=== PATIENT | female | born 1965 | race Hispanic/Latino ===

== ENCOUNTER 2022-01-07 08:00 | Inpatient (IN) | payer OTHER ==
[~2022-01-07 08:00] MED LIST: ISOVUE-370 76%-LOCM 1 ML ONE
[2022-01-07 08:14] LABS: #Basophils 0.1 thou/uL (0.0-0.2); #Eosinphils 0.1 thou/uL (0.0-0.7); #Lymphocytes 2.2 thou/uL (1.20-3.40); #Monocytes 0.5 thou/uL (0.11-0.59); #Neutrophils 2.9 thou/uL (1.40-6.50); %Basophils 1.5 % (0.0-1.0); %Eosinophils 1.6 % (0.0-10.0); %Lymphocytes 37.5 % (21.0-51.0); %Monocytes 8.5 % (0.0-10.0); %Neutrophils 50.8 % (42.0-75.0); Hemoglobin 11.1 g/dL (12.0-16.0); Mean Corpuscular HGB CONC 35.4 g/dL (32.0-36.0); Mean Corpuscular Hemoglobin 31.9 pg (27.0-31.0); Mean Corpuscular Volume 90.2 fL (78.0-98.0); Mean Platelet Volume 9.7 fL (7.4-10.4); Platelet Count 173 thou/uL (130-400); RBC Distribution Width 11.6 % (11.5-14.5); Red Blood Cell (RBC) Count 3.48 mill/uL (4.20-5.40); White Blood Cell (WBC) Count 5.8 thou/uL (4.8-10.8)
[2022-01-07 08:20] LABS: INR-International Normal Ratio 1.1; Prothrombin Time 14.7 sec (12.0-14.7)
[2022-01-07 08:21] LABS: PTT 30.1 sec (22.9-36.1)
[2022-01-07 08:28] LABS: ALT (SGPT) 11 U/L (8-55); AST (SGOT) 11 U/L (5-34); Alkaline Phosphatase 96 U/L (40-110); Anion Gap 14 mmol/L (10-20); BUN (Urea Nitrogen) 34 mg/dL (9.8-20.1); Bilirubin, Total 0.3 mg/dL (0.2-1.2); CK (CPK) 67 U/L (29-168); Calc. Creatinine Clearance 0 mL/min (70-130); Calcium 10.2 mg/dL (7.8-10.44); Carbon Dioxide 24 mmol/L (22-29); Chloride 101 mmol/L (98-107); Estimated GFR 35; Globulin 2.7 g/dL (2.4-3.5); Glucose 367 mg/dL (70-105); Potassium 4.5 mmol/L (3.5-5.1); Protein, Total 5.7 g/dL (6.0-8.3); Sodium 134 mmol/L (136-145)
[2022-01-07] MEDS ORDERED: Aspirin 300 MG Suppository ONE (08:46)
[2022-01-07 08:51] LABS: CKMB 1.7 ng/mL (0-6.6)
[2022-01-07 10:08] LABS: SARS-CoV-2 NAA Rapid Test Not Detected (NotDetected)
[2022-01-07] MEDS ORDERED: Morphine 2 MG/ML VIAL ONE ×2 (10:45→11:03)
[2022-01-07 11:18] LABS: Troponin I 0.038 ng/mL (< 0.028)
[2022-01-07] MEDS ORDERED: HumaLOG 300 UNITS/3 ML VIAL SC PRN (11:58)
[2022-01-07] MEDS ORDERED: Dextrose 5% in Water 1,000 ML IV PRN (11:58)
[2022-01-07] MEDS ORDERED: Dextrose 50% Abboject 50 ML SYRINGE SLOW IVP PRN (11:58)
[2022-01-07 12:30] LABS: Hemoglobin A1c 12.1 % (4.0-6.0)
[2022-01-07] MEDS ORDERED: Labetalol HCl 100 MG/20 ML VIAL ONE (13:04)
[2022-01-07] MEDS ORDERED: Furosemide 40 MG/4 ML VIAL SLOW IVP SCH (14:15)
[2022-01-07 15:06] LABS: Troponin I 0.032 ng/mL (< 0.028)
[2022-01-07] MEDS ORDERED: Ondansetron PF 4 MG/2 ML Vial IVP PRN (20:04)
[2022-01-07] MEDS: Atorvastatin Calcium 40 MG TAB PO SCH (21:07)
[2022-01-07] MEDS: Acetaminophen 650 MG Suppository PR PRN (21:33)
[2022-01-07] MEDS: HumaLOG 300 UNITS/3 ML VIAL SC PRN (21:49)
[2022-01-08 05:42] LABS: #Lymphocytes 2.1 thou/uL (1.20-3.40); #Monocytes 0.6 thou/uL (0.11-0.59); #Neutrophils 5.2 thou/uL (1.40-6.50); %Basophils 0.5 % (0.0-1.0); %Lymphocytes 26.1 % (21.0-51.0); %Monocytes 7.9 % (0.0-10.0); %Neutrophils 65.4 % (42.0-75.0); Hemoglobin 10.9 g/dL (12.0-16.0); Mean Corpuscular HGB CONC 33.1 g/dL (32.0-36.0); Mean Corpuscular Hemoglobin 29.6 pg (27.0-31.0); Mean Corpuscular Volume 89.5 fL (78.0-98.0); Mean Platelet Volume 9.9 fL (7.4-10.4); Platelet Count 180 thou/uL (130-400); RBC Distribution Width 11.8 % (11.5-14.5); Red Blood Cell (RBC) Count 3.69 mill/uL (4.20-5.40)
[2022-01-08 06:07] LABS: Anion Gap 14 mmol/L (10-20); BUN (Urea Nitrogen) 37 mg/dL (9.8-20.1); Calc. Creatinine Clearance 34 mL/min (70-130); Calcium 10.2 mg/dL (7.8-10.44); Carbon Dioxide 25 mmol/L (22-29); Cardiac Risk 2.1 (Less than 4.5); Chloride 103 mmol/L (98-107); Cholesterol 122 mg/dl (< 200 Desired); Estimated GFR 28; Glucose 279 mg/dL (70-105); HDL Cholesterol 58 mg/dL (>60 Neg Risk); LDL Cholesterol, Calculated 47 mg/dL; Potassium 4.5 mmol/L (3.5-5.1); Sodium 137 mmol/L (136-145); Triglycerides 83 mg/dL (Less than 150)
[2022-01-08] MEDS: Furosemide 40 MG/4 ML VIAL SLOW IVP SCH ×2 (06:11→15:12)
[2022-01-08] MEDS: HumaLOG 300 UNITS/3 ML VIAL SC PRN ×4 (06:11→22:12)
[2022-01-08] MEDS: Acetaminophen 650 MG Suppository PR PRN (08:38)
[2022-01-08] MEDS ORDERED: Aspirin 81 mg Enteric Coated Tablet PO SCH (09:00)
[2022-01-08] MEDS ORDERED: Enoxaparin Sodium 40 MG/0.4 ML SYRINGE SC SCH (09:00)
[2022-01-08] MEDS ORDERED: Lantus 1000 UNITS/10 ML VIAL SC SCH (09:00)
[2022-01-08] MEDS ORDERED: Metoprolol Tartrate 5 MG/5 ML VIAL IVP SCH (10:14)
[2022-01-08] MEDS ORDERED: Piperacillin/Tazobactam 3.375 GM in Sodium Chloride 0.9% 100 ML IVPB SCH ×2 (10:15→12:00)
[2022-01-08] MEDS: Metoprolol Tartrate 5 MG/5 ML VIAL IVP PRN (12:50)
[2022-01-08] MEDS: niCARdipine 25 MG in Sodium Chloride 0.9% 250 ML 250 ML IVPB SCH ×3 (13:32→22:50)
[2022-01-08 17:10] LABS: Bacteria/HPF 2+ HPF (None Seen); Bilirubin Negative (Negative); Blood, Urine 1+ (Negative); Clarity Clear (Clear); Glucose, Urine (Dipstick) 200 mg/dL (Negative); Ketone, Urine Trace mg/dL (Negative); Leukocyte 500 Leu/uL (Negative); Nitrite Negative (Negative); Protein, Urine (Dipstick) 300 mg/dL (Neg-Trace); RBC/HPF 0-3 HPF (0-3); Specific Gravity, Urine 1.022 (1.002-1.036); Squamous Epithelial 0-3 HPF (0-3); Urobilinogen Normal mg/dL (Less than 2); WBC/HPF Greater than 50 HPF (0-3); pH, Urine 6.5 (5.0-9.0)
[2022-01-08] MEDS: Albumin 25% 25 GM/100 ML BOT IVPB SCH (18:14)
[2022-01-08] MEDS: Atorvastatin Calcium 40 MG TAB PO SCH (20:35)
[2022-01-08] MEDS: Piperacillin/Tazobactam 3.375 GM in Sodium Chloride 0.9% 100 ML IVPB SCH (20:49)
[2022-01-09] MEDS: Albumin 25% 25 GM/100 ML BOT IVPB SCH ×3 (00:12→12:51)
[2022-01-09 04:00] LABS: #Lymphocytes 1.3 thou/uL (1.20-3.40); #Monocytes 0.9 thou/uL (0.11-0.59); #Neutrophils 7.9 thou/uL (1.40-6.50); %Basophils 0.2 % (0.0-1.0); %Eosinophils 0.1 % (0.0-10.0); %Lymphocytes 12.6 % (21.0-51.0); %Monocytes 9.1 % (0.0-10.0); %Neutrophils 77.9 % (42.0-75.0); Mean Corpuscular Hemoglobin 29.6 pg (27.0-31.0); Mean Corpuscular Volume 89.7 fL (78.0-98.0); Mean Platelet Volume 10.2 fL (7.4-10.4); Platelet Count 152 thou/uL (130-400); Red Blood Cell (RBC) Count 3.38 mill/uL (4.20-5.40); White Blood Cell (WBC) Count 10.2 thou/uL (4.8-10.8)
[2022-01-09 04:05] LABS: Anion Gap 19 mmol/L (10-20); BUN (Urea Nitrogen) 42 mg/dL (9.8-20.1); Calc. Creatinine Clearance 27 mL/min (70-130); Calcium 10.1 mg/dL (7.8-10.44); Carbon Dioxide 21 mmol/L (22-29); Chloride 104 mmol/L (98-107); Estimated GFR 23; Glucose 314 mg/dL (70-105); Potassium 3.7 mmol/L (3.5-5.1); Sodium 140 mmol/L (136-145)
[2022-01-09] MEDS: Piperacillin/Tazobactam 3.375 GM in Sodium Chloride 0.9% 100 ML IVPB SCH ×3 (04:37→21:27)
[2022-01-09] MEDS: HumaLOG 300 UNITS/3 ML VIAL SC PRN ×4 (04:37→23:08)
[2022-01-09] MEDS: Furosemide 40 MG/4 ML VIAL SLOW IVP SCH (05:41)
[2022-01-09] MEDS: Aspirin 300 MG Suppository PR SCH ×2 (07:21→08:34)
[2022-01-09] MEDS: Pantoprazole 40 MG VIAL IVP SCH (07:21)
[2022-01-09] MEDS ORDERED: Dextrose 5 %-0.45 % NaCl 1,000 ML IV SCH (08:45)
[2022-01-09] MEDS ORDERED: Enoxaparin Sodium 30 MG/0.3 ML SYRINGE SC SCH (09:00)
[2022-01-09] MEDS: NPH, Human Insulin Isophane 300 UNIT/3 ML VIAL SC SCH ×2 (11:34→21:28)
[2022-01-09] MEDS: Sodium Chloride 0.9% 1,000 ML IV SCH (11:34)
[2022-01-09] MEDS: Metoprolol Tartrate 5 MG/5 ML VIAL IVP PRN ×2 (13:55→20:42)
[2022-01-09] MEDS: Atorvastatin Calcium 40 MG TAB PO SCH (21:27)
[2022-01-09] MEDS: hydrALAZINE 20 MG/ML VIAL SLOW IVP PRN (23:23)
[2022-01-10] MEDS: Sodium Chloride 0.9% 1,000 ML IV SCH ×2 (01:40→18:03)
[2022-01-10] MEDS: Metoprolol Tartrate 5 MG/5 ML VIAL IVP PRN ×2 (02:17→10:25)
[2022-01-10] MEDS: hydrALAZINE 20 MG/ML VIAL SLOW IVP PRN (03:11)
[2022-01-10 03:46] LABS: #Lymphocytes 1.3 thou/uL (1.20-3.40); #Monocytes 0.7 thou/uL (0.11-0.59); #Neutrophils 9.3 thou/uL (1.40-6.50); %Basophils 0.1 % (0.0-1.0); %Eosinophils 0.1 % (0.0-10.0); %Lymphocytes 11.8 % (21.0-51.0); %Monocytes 6.3 % (0.0-10.0); %Neutrophils 81.7 % (42.0-75.0); Hemoglobin 10.5 g/dL (12.0-16.0); Mean Corpuscular HGB CONC 33.1 g/dL (32.0-36.0); Mean Corpuscular Hemoglobin 30.3 pg (27.0-31.0); Mean Corpuscular Volume 91.4 fL (78.0-98.0); Mean Platelet Volume 10.5 fL (7.4-10.4); Platelet Count 146 thou/uL (130-400); RBC Distribution Width 12.2 % (11.5-14.5); Red Blood Cell (RBC) Count 3.47 mill/uL (4.20-5.40); White Blood Cell (WBC) Count 11.3 thou/uL (4.8-10.8)
[2022-01-10 04:05] LABS: Anion Gap 17 mmol/L (10-20); BUN (Urea Nitrogen) 46 mg/dL (9.8-20.1); Calc. Creatinine Clearance 29 mL/min (70-130); Calcium 9.9 mg/dL (7.8-10.44); Carbon Dioxide 20 mmol/L (22-29); Chloride 109 mmol/L (98-107); Estimated GFR 25; Glucose 264 mg/dL (70-105); Potassium 3.1 mmol/L (3.5-5.1); Sodium 143 mmol/L (136-145)
[2022-01-10] MEDS: HumaLOG 300 UNITS/3 ML VIAL SC PRN ×3 (04:10→20:38)
[2022-01-10] MEDS: Piperacillin/Tazobactam 3.375 GM in Sodium Chloride 0.9% 100 ML IVPB SCH ×3 (04:15→20:37)
[2022-01-10] MEDS: Pantoprazole 40 MG VIAL IVP SCH (09:09)
[2022-01-10] MEDS: Aspirin 300 MG Suppository PR SCH (09:10)
[2022-01-10] MEDS: NPH, Human Insulin Isophane 300 UNIT/3 ML VIAL SC SCH ×2 (09:12→20:38)
[2022-01-10] MEDS: Potassium Chloride 20 MEQ in Premix Bag 1 BAG IVPB SCH ×3 (12:04→23:26)
[2022-01-10] MEDS ORDERED: Mannitol 12.5 GM/50 ML ONE (15:07)
[2022-01-10] MEDS ORDERED: Phenylephrine 10 MG/ML VIAL ONE ×2 (15:09→15:31)
[2022-01-10] MEDS ORDERED: fentaNYL Citrate/PF 100 MCG/2 ML SYRINGE ONE (15:09)
[2022-01-10] MEDS ORDERED: Lidocaine 1% PF 5 ML VIAL ONE (15:31)
[2022-01-10] MEDS ORDERED: Rocuronium Bromide 10 MG/ML (10ML VIAL) ONE (15:31)
[2022-01-10] MEDS ORDERED: PROPOFOL 200 MG/20 ML VIAL ONE (15:31)
[2022-01-10] MEDS ORDERED: Bacitracin Zinc Ointment 30 gm TUBE ONE (15:50)
[2022-01-10] MEDS ORDERED: Thrombin 5000 UNITS/5 ML VIAL ONE (15:50)
[2022-01-10] MEDS ORDERED: Lidocaine 0.5%/Epinephrine 1:200,000 50 ml Vial ONE (15:50)
[2022-01-10] MEDS ORDERED: Propofol 1,000 MG/100 ML VIAL IV PRN ×2 (17:42→18:15)
[2022-01-10] MEDS ORDERED: Fentanyl 100 MCG/2 ML VIAL ONE ×2 (17:44→17:52)
[2022-01-10] MEDS ORDERED: Ventilator Sedation Protocol 1 EACH FS ONE (17:49)
[2022-01-10] MEDS ORDERED: Propofol 1,000 MG/100 ML VIAL IV ONE (17:52)
[2022-01-10 17:56] LABS: Actual Bicarbonate (HCO3a) 21.8 mEq/L (22-28); Base Excess (BEa) -1.1 mEq/L (-2.0 to +3.0); CO2 Tension 30.1 mmHg (35.0-45.0); Calcium, Ionized (arterial) 1.25 mmol/L (1.12-1.30); Carboxyhemoglobin (COHb) 0.3 gm% (0.0-3.0); Hemoglobin (Hb) 9.8 g/dL (12.0-16.0); O2 Tension (PaO2), arterial 98.3 mmHg (80.0-100.0); Potassium - ABG Lab 2.91 mmol/L (3.70-5.30); pH, Arterial 7.48 (7.35-7.45)
[2022-01-10 17:58] LABS: Puncture Site RBA
[2022-01-10 17:59] LABS: ALV-art Gradient 149.275 mmHg (0-20)
[2022-01-10] MEDS ORDERED: Fosphenytoin Sodium 750 MG in Sodium Chloride 0.9% 50 ML IVPB SCH (18:00)
[2022-01-10] MEDS ORDERED: Midazolam HCl 2 mg/2 ml Vial SLOW IVP PRN (18:01)
[2022-01-10] MEDS ORDERED: DISCONTINUE PREVIOUS NARCOTIC PAIN MEDICATIONS AND BENZODIAZEPINES FS SCH (18:15)
[2022-01-10] MEDS ORDERED: Propofol BOLUS 1,000 MG/100 ML VIAL IV PRN (18:15)
[2022-01-10] MEDS ORDERED: Morphine 2 MG/ML VIAL SLOW IVP PRN (18:15)
[2022-01-10] MEDS ORDERED: Fentanyl BOLUS 250 ML IVPB PRN (18:15)
[2022-01-10] MEDS: CEFAZOLIN 2 GM in Sodium Chloride 0.9% 100 ML IVPB SCH (18:37)
[2022-01-10] MEDS: Atorvastatin Calcium 40 MG TAB PO SCH (20:37)
[2022-01-10 22:49] LABS: #Lymphocytes 1.3 thou/uL (1.20-3.40); #Monocytes 0.7 thou/uL (0.11-0.59); #Neutrophils 7.8 thou/uL (1.40-6.50); %Eosinophils 0.1 % (0.0-10.0); %Lymphocytes 13.6 % (21.0-51.0); %Monocytes 6.8 % (0.0-10.0); %Neutrophils 79.5 % (42.0-75.0); Hemoglobin 8.6 g/dL (12.0-16.0); Mean Corpuscular HGB CONC 30.4 g/dL (32.0-36.0); Mean Corpuscular Hemoglobin 29.6 pg (27.0-31.0); Mean Corpuscular Volume 97.3 fL (78.0-98.0); Mean Platelet Volume 10.3 fL (7.4-10.4); Platelet Count 130 thou/uL (130-400); RBC Distribution Width 12.1 % (11.5-14.5); Red Blood Cell (RBC) Count 2.92 mill/uL (4.20-5.40); White Blood Cell (WBC) Count 9.8 thou/uL (4.8-10.8)
[2022-01-10 23:06] LABS: Anion Gap 15 mmol/L (10-20); BUN (Urea Nitrogen) 43 mg/dL (9.8-20.1); Calc. Creatinine Clearance 33 mL/min (70-130); Calcium 9.1 mg/dL (7.8-10.44); Carbon Dioxide 20 mmol/L (22-29); Chloride 115 mmol/L (98-107); Estimated GFR 29; Glucose 158 mg/dL (70-105); Magnesium 1.6 mg/dL (1.6-2.6); Potassium 3.1 mmol/L (3.5-5.1); Sodium 147 mmol/L (136-145)
[2022-01-10] MEDS ORDERED: Magnesium 2 GM/50 ML(in water) 2 GM in Premix Bag 1 BAG IVPB SCH (23:30)
[2022-01-11] MEDS: Potassium Chloride 20 MEQ in Premix Bag 1 BAG IVPB SCH (01:03)
[2022-01-11] MEDS: CEFAZOLIN 2 GM in Sodium Chloride 0.9% 100 ML IVPB SCH ×3 (01:03→18:08)
[2022-01-11] MEDS: Sodium Chloride 0.9% 1,000 ML IV SCH ×2 (02:12→15:07)
[2022-01-11 04:02] LABS: Anion Gap 14 mmol/L (10-20); BUN (Urea Nitrogen) 47 mg/dL (9.8-20.1); Calc. Creatinine Clearance 32 mL/min (70-130); Carbon Dioxide 23 mmol/L (22-29); Chloride 114 mmol/L (98-107); Estimated GFR 28; Glucose 139 mg/dL (70-105); Potassium 3.7 mmol/L (3.5-5.1); Sodium 147 mmol/L (136-145)
[2022-01-11] MEDS: Piperacillin/Tazobactam 3.375 GM in Sodium Chloride 0.9% 100 ML IVPB SCH (04:13)
[2022-01-11 07:28] LABS: Actual Bicarbonate (HCO3a) 21.2 mEq/L (22-28); Base Excess (BEa) -1.4 mEq/L (-2.0 to +3.0); CO2 Tension 28.4 mmHg (35.0-45.0); Calcium, Ionized (arterial) 1.18 mmol/L (1.12-1.30); Carboxyhemoglobin (COHb) 0.3 gm% (0.0-3.0); Hemoglobin (Hb) 10.1 g/dL (12.0-16.0); O2 Tension (PaO2), arterial 130.2 mmHg (80.0-100.0); Potassium - ABG Lab 3.59 mmol/L (3.70-5.30); pH, Arterial 7.49 (7.35-7.45)
[2022-01-11 07:39] LABS: Puncture Site RRA
[2022-01-11] MEDS: Pantoprazole 40 MG VIAL IVP SCH (09:47)
[2022-01-11] MEDS: NPH, Human Insulin Isophane 300 UNIT/3 ML VIAL SC SCH ×2 (09:51→21:14)
[2022-01-11] MEDS: HumaLOG 300 UNITS/3 ML VIAL SC PRN ×2 (16:19→21:14)
[2022-01-11] MEDS: Atorvastatin Calcium 40 MG TAB PO SCH (20:38)
[2022-01-12] MEDS: CEFAZOLIN 2 GM in Sodium Chloride 0.9% 100 ML IVPB SCH ×3 (01:46→18:23)
[2022-01-12] MEDS: HumaLOG 300 UNITS/3 ML VIAL SC PRN ×2 (03:32→20:54)
[2022-01-12 03:59] LABS: #Lymphocytes 1.2 thou/uL (1.20-3.40); #Monocytes 0.5 thou/uL (0.11-0.59); #Neutrophils 5.6 thou/uL (1.40-6.50); %Basophils 0.3 % (0.0-1.0); %Eosinophils 0.1 % (0.0-10.0); %Neutrophils 76.5 % (42.0-75.0); Hemoglobin 7.4 g/dL (12.0-16.0); Mean Corpuscular HGB CONC 31.1 g/dL (32.0-36.0); Mean Corpuscular Hemoglobin 29.5 pg (27.0-31.0); Mean Corpuscular Volume 94.6 fL (78.0-98.0); Mean Platelet Volume 10.5 fL (7.4-10.4); Platelet Count 156 thou/uL (130-400); RBC Distribution Width 11.9 % (11.5-14.5); White Blood Cell (WBC) Count 7.3 thou/uL (4.8-10.8)
[2022-01-12 04:19] LABS: Anion Gap 14 mmol/L (10-20); BUN (Urea Nitrogen) 50 mg/dL (9.8-20.1); Calc. Creatinine Clearance 34 mL/min (70-130); Calcium 8.8 mg/dL (7.8-10.44); Carbon Dioxide 22 mmol/L (22-29); Chloride 116 mmol/L (98-107); Estimated GFR 29; Glucose 195 mg/dL (70-105); Magnesium 2.1 mg/dL (1.6-2.6); Potassium 3.6 mmol/L (3.5-5.1); Sodium 148 mmol/L (136-145)
[2022-01-12] MEDS: Sodium Chloride 0.9% 1,000 ML IV SCH ×3 (05:33→18:49)
[2022-01-12 07:13] LABS: Actual Bicarbonate (HCO3a) 21.5 mEq/L (22-28); Base Excess (BEa) -0.7 mEq/L (-2.0 to +3.0); CO2 Tension 29.3 mmHg (35.0-45.0); Calcium, Ionized (arterial) 1.19 mmol/L (1.12-1.30); O2 Tension (PaO2), arterial 122.7 mmHg (80.0-100.0); Potassium - ABG Lab 3.42 mmol/L (3.70-5.30); pH, Arterial 7.48 (7.35-7.45)
[2022-01-12 07:21] LABS: Puncture Site RRA
[2022-01-12 07:22] LABS: ALV-art Gradient 54.575 mmHg (0-20)
[2022-01-12] MEDS: Pantoprazole 40 MG VIAL IVP SCH (09:42)
[2022-01-12] MEDS: NPH, Human Insulin Isophane 300 UNIT/3 ML VIAL SC SCH ×2 (09:42→20:53)
[2022-01-12] MEDS: Dexamethasone 4 mg/ml Vial SLOW IVP SCH ×3 (09:43→20:53)
[2022-01-12] MEDS ORDERED: Fentanyl CADD 100 ML ONE (10:59)
[2022-01-12] MEDS: Fentanyl CADD 100 ML IV SCH (11:01)
[2022-01-12] MEDS ORDERED: Sodium Chloride 0.45% 1,000 ML IV SCH (13:30)
[2022-01-12] MEDS: Atorvastatin Calcium 40 MG TAB PO SCH (20:53)
[2022-01-13] MEDS: Dexamethasone 4 mg/ml Vial SLOW IVP SCH (02:30)
[2022-01-13] MEDS: CEFAZOLIN 2 GM in Sodium Chloride 0.9% 100 ML IVPB SCH (02:30)
[2022-01-13 03:37] LABS: #Lymphocytes 1.1 thou/uL (1.20-3.40); #Monocytes 0.6 thou/uL (0.11-0.59); #Neutrophils 7.4 thou/uL (1.40-6.50); %Basophils 0.1 % (0.0-1.0); %Eosinophils 0.1 % (0.0-10.0); %Lymphocytes 11.9 % (21.0-51.0); %Monocytes 6.1 % (0.0-10.0); %Neutrophils 81.8 % (42.0-75.0); Hemoglobin 7.2 g/dL (12.0-16.0); Mean Corpuscular HGB CONC 31.8 g/dL (32.0-36.0); Mean Corpuscular Hemoglobin 30.3 pg (27.0-31.0); Mean Corpuscular Volume 95.1 fL (78.0-98.0); Mean Platelet Volume 10.1 fL (7.4-10.4); Platelet Count 149 thou/uL (130-400); RBC Distribution Width 12.1 % (11.5-14.5); Red Blood Cell (RBC) Count 2.39 mill/uL (4.20-5.40)
[2022-01-13 03:56] LABS: Anion Gap 14 mmol/L (10-20); BUN (Urea Nitrogen) 52 mg/dL (9.8-20.1); Calc. Creatinine Clearance 40 mL/min (70-130); Calcium 9.2 mg/dL (7.8-10.44); Carbon Dioxide 21 mmol/L (22-29); Chloride 115 mmol/L (98-107); Estimated GFR 34; Glucose 159 mg/dL (70-105); Magnesium 2.1 mg/dL (1.6-2.6); Potassium 4.1 mmol/L (3.5-5.1); Sodium 146 mmol/L (136-145)
[2022-01-13] MEDS: HumaLOG 300 UNITS/3 ML VIAL SC PRN (04:55)
[2022-01-13 07:19] LABS: ALV-art Gradient 62.675 mmHg (0-20); Actual Bicarbonate (HCO3a) 20.7 mEq/L (22-28); Base Excess (BEa) -2.2 mEq/L (-2.0 to +3.0); CO2 Tension 28.1 mmHg (35.0-45.0); Calcium, Ionized (arterial) 1.25 mmol/L (1.12-1.30); Carboxyhemoglobin (COHb) 0.3 gm% (0.0-3.0); Hemoglobin (Hb) 7.4 g/dL (12.0-16.0); O2 Tension (PaO2), arterial 116.1 mmHg (80.0-100.0); Potassium - ABG Lab 4.08 mmol/L (3.70-5.30); Puncture Site RRA; pH, Arterial 7.49 (7.35-7.45)
[2022-01-13] MEDS: Lansoprazole 3 MG/ML ORAL SUSPENSION PER TUBE SCH (09:24)
[2022-01-13] MEDS: NPH, Human Insulin Isophane 300 UNIT/3 ML VIAL SC SCH ×2 (09:24→20:32)
[2022-01-13] MEDS: Sodium Chloride 0.9% 1,000 ML IV SCH (09:41)
[2022-01-13] MEDS: Atorvastatin Calcium 40 MG TAB PO SCH (20:32)
[2022-01-14 03:43] LABS: #Lymphocytes 1.7 thou/uL (1.20-3.40); #Neutrophils 6.5 thou/uL (1.40-6.50); %Basophils 0.2 % (0.0-1.0); %Eosinophils 0.5 % (0.0-10.0); %Lymphocytes 18.5 % (21.0-51.0); %Monocytes 10.3 % (0.0-10.0); %Neutrophils 70.6 % (42.0-75.0); Mean Corpuscular HGB CONC 32.1 g/dL (32.0-36.0); Mean Corpuscular Hemoglobin 29.9 pg (27.0-31.0); Mean Platelet Volume 10.1 fL (7.4-10.4); Platelet Count 178 thou/uL (130-400); RBC Distribution Width 11.9 % (11.5-14.5); Red Blood Cell (RBC) Count 2.36 mill/uL (4.20-5.40); White Blood Cell (WBC) Count 9.2 thou/uL (4.8-10.8)
[2022-01-14 04:08] LABS: Anion Gap 15 mmol/L (10-20); BUN (Urea Nitrogen) 58 mg/dL (9.8-20.1); Calc. Creatinine Clearance 43 mL/min (70-130); Calcium 9.2 mg/dL (7.8-10.44); Carbon Dioxide 19 mmol/L (22-29); Chloride 114 mmol/L (98-107); Estimated GFR 35; Glucose 156 mg/dL (70-105); Magnesium 2.1 mg/dL (1.6-2.6); Potassium 4.2 mmol/L (3.5-5.1); Sodium 144 mmol/L (136-145)
[2022-01-14] MEDS: Sodium Chloride 0.9% 1,000 ML IV SCH ×2 (04:57→16:35)
[2022-01-14] MEDS: Acetaminophen 325 MG TAB PO PRN ×2 (05:32→18:44)
[2022-01-14] MEDS: HumaLOG 300 UNITS/3 ML VIAL SC PRN (05:33)
[2022-01-14 07:04] LABS: Actual Bicarbonate (HCO3a) 19.9 mEq/L (22-28); Base Excess (BEa) -0.8 mEq/L (-2.0 to +3.0); Calcium, Ionized (arterial) 1.25 mmol/L (1.12-1.30); O2 Tension (PaO2), arterial 86.2 mmHg (80.0-100.0); pH, Arterial 7.53 (7.35-7.45)
[2022-01-14 07:05] LABS: CO2 Tension 24.1 mmHg (35.0-45.0)
[2022-01-14 07:06] LABS: ALV-art Gradient 97.575 mmHg (0-20); Puncture Site LBA
[2022-01-14] MEDS: NPH, Human Insulin Isophane 300 UNIT/3 ML VIAL SC SCH ×2 (09:12→21:18)
[2022-01-14] MEDS: Lansoprazole 3 MG/ML ORAL SUSPENSION PER TUBE SCH (09:12)
[2022-01-14] MEDS: Fentanyl CADD 100 ML IV SCH (12:10)
[2022-01-14] MEDS: Senokot S 8.6-50 MG TAB PO SCH (21:18)
[2022-01-14] MEDS: Atorvastatin Calcium 40 MG TAB PO SCH (21:18)
[2022-01-15 04:28] LABS: #Lymphocytes 1.8 thou/uL (1.20-3.40); #Monocytes 0.9 thou/uL (0.11-0.59); #Neutrophils 7.2 thou/uL (1.40-6.50); %Basophils 0.1 % (0.0-1.0); %Eosinophils 0.2 % (0.0-10.0); %Lymphocytes 18.2 % (21.0-51.0); %Monocytes 8.8 % (0.0-10.0); %Neutrophils 72.6 % (42.0-75.0); Hemoglobin 7.4 g/dL (12.0-16.0); Mean Corpuscular HGB CONC 31.8 g/dL (32.0-36.0); Mean Corpuscular Hemoglobin 29.4 pg (27.0-31.0); Mean Corpuscular Volume 92.5 fL (78.0-98.0); Mean Platelet Volume 10.3 fL (7.4-10.4); Platelet Count 220 thou/uL (130-400); RBC Distribution Width 12.1 % (11.5-14.5)
[2022-01-15 04:37] LABS: Anion Gap 15 mmol/L (10-20); BUN (Urea Nitrogen) 61 mg/dL (9.8-20.1); Calc. Creatinine Clearance 45 mL/min (70-130); Calcium 8.9 mg/dL (7.8-10.44); Carbon Dioxide 20 mmol/L (22-29); Chloride 111 mmol/L (98-107); Estimated GFR 35; Glucose 180 mg/dL (70-105); Magnesium 2.1 mg/dL (1.6-2.6); Potassium 4.7 mmol/L (3.5-5.1); Sodium 141 mmol/L (136-145)
[2022-01-15 07:39] LABS: Actual Bicarbonate (HCO3a) 20.1 mEq/L (22-28); Calcium, Ionized (arterial) 1.23 mmol/L (1.12-1.30); O2 Tension (PaO2), arterial 96.4 mmHg (80.0-100.0); Potassium - ABG Lab 4.51 mmol/L (3.70-5.30); pH, Arterial 7.52 (7.35-7.45)
[2022-01-15 07:40] LABS: CO2 Tension 25.5 mmHg (35.0-45.0); Puncture Site LBA
[2022-01-15 07:41] LABS: ALV-art Gradient 85.625 mmHg (0-20)
[2022-01-15] MEDS: Polyethylene Glycol 3350 17 GM Packet PER TUBE SCH (09:51)
[2022-01-15] MEDS: Senokot S 8.6-50 MG TAB PO SCH ×2 (09:51→21:44)
[2022-01-15] MEDS: Lansoprazole 3 MG/ML ORAL SUSPENSION PER TUBE SCH (09:52)
[2022-01-15] MEDS: NPH, Human Insulin Isophane 300 UNIT/3 ML VIAL SC SCH ×3 (09:53→21:44)
[2022-01-15] MEDS: HumaLOG 300 UNITS/3 ML VIAL SC PRN (13:46)
[2022-01-15] MEDS: Fentanyl 100 MCG/2 ML VIAL SLOW IVP PRN (13:47)
[2022-01-15] MEDS: Sodium Chloride 0.9% 1,000 ML IV SCH ×2 (15:04→22:00)
[2022-01-15] MEDS: Atorvastatin Calcium 40 MG TAB PO SCH (21:44)
[2022-01-16] MEDS: Fentanyl 100 MCG/2 ML VIAL SLOW IVP PRN (03:55)
[2022-01-16 04:04] LABS: #Lymphocytes 1.2 thou/uL (1.20-3.40); #Monocytes 0.5 thou/uL (0.11-0.59); #Neutrophils 9.6 thou/uL (1.40-6.50); %Basophils 0.1 % (0.0-1.0); %Eosinophils 0.1 % (0.0-10.0); %Lymphocytes 10.9 % (21.0-51.0); %Monocytes 4.7 % (0.0-10.0); %Neutrophils 84.2 % (42.0-75.0); Hemoglobin 6.9 g/dL (12.0-16.0); Mean Corpuscular HGB CONC 32.6 g/dL (32.0-36.0); Mean Corpuscular Hemoglobin 29.8 pg (27.0-31.0); Mean Corpuscular Volume 91.4 fL (78.0-98.0); Mean Platelet Volume 9.9 fL (7.4-10.4); Platelet Count 245 thou/uL (130-400); RBC Distribution Width 11.9 % (11.5-14.5); Red Blood Cell (RBC) Count 2.31 mill/uL (4.20-5.40); White Blood Cell (WBC) Count 11.3 thou/uL (4.8-10.8)
[2022-01-16 04:24] LABS: Anion Gap 19 mmol/L (10-20); BUN (Urea Nitrogen) 67 mg/dL (9.8-20.1); Calc. Creatinine Clearance 48 mL/min (70-130); Carbon Dioxide 16 mmol/L (22-29); Chloride 111 mmol/L (98-107); Estimated GFR 36; Glucose 151 mg/dL (70-105); Magnesium 2.1 mg/dL (1.6-2.6); Potassium 4.7 mmol/L (3.5-5.1); Sodium 141 mmol/L (136-145)
[2022-01-16 07:25] LABS: Actual Bicarbonate (HCO3a) 20.1 mEq/L (22-28); Base Excess (BEa) -2.1 mEq/L (-2.0 to +3.0); Calcium, Ionized (arterial) 1.19 mmol/L (1.12-1.30); Carboxyhemoglobin (COHb) 0.6 gm% (0.0-3.0); Hemoglobin (Hb) 8.4 g/dL (12.0-16.0); O2 Tension (PaO2), arterial 69.3 mmHg (80.0-100.0); Potassium - ABG Lab 4.74 mmol/L (3.70-5.30); pH, Arterial 7.52 (7.35-7.45)
[2022-01-16 07:55] LABS: ALV-art Gradient 112.975 mmHg (0-20); CO2 Tension 25.3 mmHg (35.0-45.0); Puncture Site LRA
[2022-01-16] MEDS: Polyethylene Glycol 3350 17 GM Packet PER TUBE SCH (08:57)
[2022-01-16] MEDS: Senokot S 8.6-50 MG TAB PO SCH ×2 (08:57→20:08)
[2022-01-16] MEDS: Lansoprazole 3 MG/ML ORAL SUSPENSION PER TUBE SCH (08:58)
[2022-01-16] MEDS: NPH, Human Insulin Isophane 300 UNIT/3 ML VIAL SC SCH ×2 (09:01→21:53)
[2022-01-16] MEDS: Acetaminophen 325 MG TAB PO PRN (16:03)
[2022-01-16] MEDS: Sodium Chloride 0.9% 1,000 ML IV SCH ×2 (18:01→19:55)
[2022-01-16] MEDS: Atorvastatin Calcium 40 MG TAB PO SCH (20:08)
[2022-01-16] MEDS ORDERED: Furosemide 40 MG/4 ML VIAL SLOW IVP SCH (23:45)
[2022-01-17] MEDS: HumaLOG 300 UNITS/3 ML VIAL SC PRN ×2 (04:43→10:17)
[2022-01-17 07:10] LABS: Actual Bicarbonate (HCO3a) 18.1 mEq/L (22-28); Base Excess (BEa) -4.7 mEq/L (-2.0 to +3.0); Calcium, Ionized (arterial) 1.25 mmol/L (1.12-1.30); Carboxyhemoglobin (COHb) 0.6 gm% (0.0-3.0); Hemoglobin (Hb) 7.7 g/dL (12.0-16.0); O2 Tension (PaO2), arterial 81.9 mmHg (80.0-100.0); Potassium - ABG Lab 5.28 mmol/L (3.70-5.30); pH, Arterial 7.48 (7.35-7.45)
[2022-01-17 07:19] LABS: CO2 Tension 25.2 mmHg (35.0-45.0)
[2022-01-17 07:20] LABS: Puncture Site LRA
[2022-01-17 07:55] LABS: Hemoglobin 7.4 g/dL (12.0-16.0); Mean Corpuscular HGB CONC 30.9 g/dL (32.0-36.0); Mean Corpuscular Hemoglobin 29.3 pg (27.0-31.0); Mean Corpuscular Volume 94.9 fL (78.0-98.0); Mean Platelet Volume 10.2 fL (7.4-10.4); Platelet Count 286 thou/uL (130-400); RBC Distribution Width 12.2 % (11.5-14.5); Red Blood Cell (RBC) Count 2.53 mill/uL (4.20-5.40); White Blood Cell (WBC) Count 17.7 thou/uL (4.8-10.8)
[2022-01-17 08:08] LABS: Anion Gap 21 mmol/L (10-20); BUN (Urea Nitrogen) 85 mg/dL (9.8-20.1); Calc. Creatinine Clearance 42 mL/min (70-130); Carbon Dioxide 13 mmol/L (22-29); Chloride 109 mmol/L (98-107); Estimated GFR 28; Glucose 175 mg/dL (70-105); Potassium 5.3 mmol/L (3.5-5.1); Sodium 138 mmol/L (136-145)
[2022-01-17 08:19] LABS: #Lymphocytes 1.8 thou/uL (1.20-3.40); #Monocytes 0.8 thou/uL (0.11-0.59); #Neutrophils 15.1 thou/uL (1.40-6.50); %Basophils 0.2 % (0.0-1.0); %Eosinophils 0.1 % (0.0-10.0); %Lymphocytes 10.4 % (21.0-51.0); %Monocytes 4.3 % (0.0-10.0); %Neutrophils 85.1 % (42.0-75.0); Band 39 % (5-11); Lymphocytes 15 % (21-51); MDiff Complete? YES; Monocytes 3 % (0-10); Neutrophil 43 % (42-75); Nucleated RBC 1 % (0); Platelet Morphology Comment Appears Adequate; Polychromasia SLIGHT = 2-3 cells (100X) (0-2/hpf)
[2022-01-17] MEDS: Polyethylene Glycol 3350 17 GM Packet PER TUBE SCH (09:29)
[2022-01-17] MEDS: NPH, Human Insulin Isophane 300 UNIT/3 ML VIAL SC SCH ×2 (09:29→20:52)
[2022-01-17] MEDS: Lansoprazole 3 MG/ML ORAL SUSPENSION PER TUBE SCH (09:29)
[2022-01-17] MEDS: Docusate Sodium 100 MG/10 ML UDCUP PO SCH ×2 (10:14→20:52)
[2022-01-17 11:45] VITALS: BMI 31.1
[2022-01-17] MEDS: TIMOLOL L EYE SCH ×2 (12:00→20:52)
[2022-01-17] MEDS: DORZOLAMIDE L EYE SCH ×2 (12:00→20:52)
[2022-01-17] MEDS: BRIMONIDINE TARTRATE 0.2% L EYE SCH ×2 (12:00→20:53)
[2022-01-17] MEDS: PREDNISOLONE ACETATE 1% L EYE SCH ×3 (13:00→20:53)
[2022-01-17] MEDS: Atorvastatin Calcium 40 MG TAB PO SCH (20:52)
[2022-01-18 07:06] LABS: ALT (SGPT) 59 U/L (8-55); AST (SGOT) 187 U/L (5-34); Albumin 2.3 g/dL (3.5-5.0); Alkaline Phosphatase 301 U/L (40-110); Anion Gap 17 mmol/L (10-20); BUN (Urea Nitrogen) 97 mg/dL (9.8-20.1); Bilirubin, Total 0.3 mg/dL (0.2-1.2); Calc. Creatinine Clearance 39 mL/min (70-130); Calcium 9.1 mg/dL (7.8-10.44); Carbon Dioxide 19 mmol/L (22-29); Chloride 110 mmol/L (98-107); Estimated GFR 26; Globulin 3.3 g/dL (2.4-3.5); Glucose 120 mg/dL (70-105); Magnesium 2.4 mg/dL (1.6-2.6); Potassium 4.9 mmol/L (3.5-5.1); Protein, Total 5.6 g/dL (6.0-8.3); Sodium 141 mmol/L (136-145)
[2022-01-18 07:40] LABS: Actual Bicarbonate (HCO3a) 18.7 mEq/L (22-28); Base Excess (BEa) -3.9 mEq/L (-2.0 to +3.0); Calcium, Ionized (arterial) 1.21 mmol/L (1.12-1.30); Carboxyhemoglobin (COHb) 0.2 gm% (0.0-3.0); Hemoglobin (Hb) 7.9 g/dL (12.0-16.0); O2 Tension (PaO2), arterial 63.7 mmHg (80.0-100.0); Potassium - ABG Lab 4.63 mmol/L (3.70-5.30); pH, Arterial 7.49 (7.35-7.45)
[2022-01-18 07:51] LABS: CO2 Tension 24.9 mmHg (35.0-45.0); Puncture Site LRA
[2022-01-18 07:52] LABS: ALV-art Gradient 119.075 mmHg (0-20)
[2022-01-18 08:18] LABS: Band 49 % (5-11); Hemoglobin 7.1 g/dL (12.0-16.0); Hypochromia SLIGHT = 6-15 cells (100X) (0-5/hpf); Lymphocytes 4 % (21-51); MDiff Complete? YES; Mean Corpuscular HGB CONC 31.2 g/dL (32.0-36.0); Mean Corpuscular Hemoglobin 29.2 pg (27.0-31.0); Mean Corpuscular Volume 93.6 fL (78.0-98.0); Mean Platelet Volume 9.7 fL (7.4-10.4); Monocytes 2 % (0-10); Neutrophil 43 % (42-75); Platelet Count 305 thou/uL (130-400); Platelet Morphology Comment Appears Adequate; Polychromasia SLIGHT = 2-3 cells (100X) (0-2/hpf); RBC Distribution Width 12.2 % (11.5-14.5); Reactive Lymphocytes 2 % (0-10); Red Blood Cell (RBC) Count 2.43 mill/uL (4.20-5.40); Schistocytes SLIGHT = 2-5 cells (100X) (0-1/hpf); Target Cells SLIGHT = 2-5 cells (100X) (0-1/hpf); Tear Drops SLIGHT = 2-5 cells (100X) (0-1/hpf); White Blood Cell (WBC) Count 19.5 thou/uL (4.8-10.8)
[2022-01-18] MEDS ORDERED: Piperacillin/Tazobactam 3.375 GM in Sodium Chloride 0.9% 100 ML IVPB SCH ×3 (09:30→15:00)
[2022-01-18] MEDS: Senokot S 8.6-50 MG TAB PO SCH (09:40)
[2022-01-18] MEDS: Polyethylene Glycol 3350 17 GM Packet PER TUBE SCH (09:41)
[2022-01-18] MEDS: Docusate Sodium 100 MG/10 ML UDCUP PO SCH (09:41)
[2022-01-18] MEDS: Lansoprazole 3 MG/ML ORAL SUSPENSION PER TUBE SCH (09:49)
[2022-01-18] MEDS: PREDNISOLONE ACETATE 1% L EYE SCH ×2 (09:50→18:34)
[2022-01-18] MEDS: TIMOLOL L EYE SCH (09:50)
[2022-01-18] MEDS: DORZOLAMIDE L EYE SCH (09:50)
[2022-01-18] MEDS: BRIMONIDINE TARTRATE 0.2% L EYE SCH (09:50)
[2022-01-18] MEDS: NPH, Human Insulin Isophane 300 UNIT/3 ML VIAL SC SCH (09:59)
[2022-01-18] MEDS ORDERED: Vancomycin HCl 750 MG in Sodium Chloride 0.9% 250 ML 250 ML IVPB SCH (12:00)
[2022-01-18 12:14] VITALS: TEMP 98.6
[2022-01-18] MEDS ORDERED: Atropine Sulfate 1 mg/10 ml Syringe ONE (14:54)
[2022-01-18] MEDS ORDERED: EPINEPHrine 1 MG/10 ML Abboject SYRINGE ONE (14:55)
[2022-01-18 15:06] LABS: Actual Bicarbonate (HCO3a) 11.7 mEq/L (22-28); CO2 Tension 46.6 mmHg (35.0-45.0); Calcium, Ionized (arterial) 1.29 mmol/L (1.12-1.30); Carboxyhemoglobin (COHb) 0.3 gm% (0.0-3.0); Hemoglobin (Hb) 7.5 g/dL (12.0-16.0); O2 Tension (PaO2), arterial 114.6 mmHg (80.0-100.0); Potassium - ABG Lab 6.16 mmol/L (3.70-5.30)
[2022-01-18 15:07] LABS: Puncture Site RFA; pH, Arterial 7.02 (7.35-7.45)
[2022-01-18 15:37] VITALS: BP 148/86
[2022-01-18] MEDS ORDERED: Sodium Bicarb 50 MEQ/50 ML VIAL ONE (15:41)
[2022-01-18] MEDS ORDERED: Morphine 4 MG/ML VIAL SLOW IVP PRN (16:09)
[2022-01-18] MEDS ORDERED: Midazolam HCl 2 mg/2 ml Vial SLOW IVP PRN (16:09)
== END 2022-01-18 20:30 | disposition expired | DRG 23 ==
LOC: ERS 08:00 → ERHOLD 10:16 → NEURO 13:35 → CCU 01-08 12:12
PROVIDERS: ADMIT Internal Medicine; ATTEND Internal Medicine
PROC: 00N00ZZ Release Brain, Open Approach (ICD-10-PCS; principal; 2022-01-10)
PROC: 00U20JZ Supplement Dura Mater with Synthetic Substitute, Open Approach (ICD-10-PCS; 2022-01-10)
PROC: 5A1955Z Respiratory Ventilation, Greater than 96 Consecutive Hours (ICD-10-PCS; 2022-01-10)
PROC: 0D9670Z Drainage of Stomach with Drainage Device, Via Natural or Artificial Opening (ICD-10-PCS; 2022-01-10)
PROC: 3E0G76Z Introduction of Nutritional Substance into Upper GI, Via Natural or Artificial Opening (ICD-10-PCS; 2022-01-10)
PROC: 5A12012 Performance of Cardiac Output, Single, Manual (ICD-10-PCS; 2022-01-18)
PROC: 3E033XZ Introduction of Vasopressor into Peripheral Vein, Percutaneous Approach (ICD-10-PCS; 2022-01-18)
DX: I63.511 Cerebral infarction due to unspecified occlusion or stenosis of right middle cerebral artery (principal); I50.23 Acute on chronic systolic (congestive) heart failure; J69.0 Pneumonitis due to inhalation of food and vomit; I61.9 Nontraumatic intracerebral hemorrhage, unspecified; G93.6 Cerebral edema; G93.5 Compression of brain; G93.41 Metabolic encephalopathy; I21.A1 Myocardial infarction type 2; J96.00 Acute respiratory failure, unspecified whether with hypoxia or hypercapnia; G81.94 Hemiplegia, unspecified affecting left nondominant side; J90 Pleural effusion, not elsewhere classified; N17.9 Acute kidney failure, unspecified; N39.0 Urinary tract infection, site not specified; I13.0 Hypertensive heart and chronic kidney disease with heart failure and stage 1 through stage 4 chronic kidney disease, or unspecified chronic kidney disease; E87.0 Hyperosmolality and hypernatremia; D62 Acute posthemorrhagic anemia; E87.2 Acidosis; Z66 Do not resuscitate; Z51.5 Encounter for palliative care; Z20.822 Contact with and (suspected) exposure to COVID-19; R47.81 Slurred speech; R29.719 NIHSS score 19; E78.5 Hyperlipidemia, unspecified; H54.62 Unqualified visual loss, left eye, normal vision right eye; R29.810 Facial weakness; E11.65 Type 2 diabetes mellitus with hyperglycemia; R33.9 Retention of urine, unspecified; E11.22 Type 2 diabetes mellitus with diabetic chronic kidney disease; D63.1 Anemia in chronic kidney disease; N18.9 Chronic kidney disease, unspecified; R13.10 Dysphagia, unspecified; E87.6 Hypokalemia; E87.5 Hyperkalemia; I46.9 Cardiac arrest, cause unspecified; D72.829 Elevated white blood cell count, unspecified; Z98.42 Cataract extraction status, left eye; Z79.4 Long term (current) use of insulin; Z79.84 Long term (current) use of oral hypoglycemic drugs; Z79.899 Other long term (current) drug therapy; Z98.890 Other specified postprocedural states; Z95.5 Presence of coronary angioplasty implant and graft; Z82.49 Family history of ischemic heart disease and other diseases of the circulatory system; Z83.3 Family history of diabetes mellitus; Z83.438 Family history of other disorder of lipoprotein metabolism and other lipidemia
CPT/HCPCS: 36415; 36416; 36600; 70450; 70496; 70498; 70551; 71045; 76770; 80048; 80053; 80061; 80185; 81001; 82550; 82553; 82805; 83036; 83735; 83880; 83930; 84145; 84484; 85025; 85610; 85730; 86850; 86900; 86901; 87040; 87086; 93005; 93306; 93970; 94002; 94003; 94640; 94760; 96374; 96375; C1713; C1789; C9113; J0171; J0360; J0461; J0690; J1100; J1165; J1650; J1815; J1940; J2001; J2150; J2250; J2270; J2370; J2405; J2543; J2704; J3010; J3370; J3475; J3480; J3490; J7042; J7050; J7620; P9047; Q2009; Q9966; U0002; U0003; U0005